=== PATIENT | male | born 1970 | race Caucasian/White ===

== ENCOUNTER 2017-01-30 20:03 | Emergency (ER) | payer OTHER, MEDICARE ==
[~2017-01-30] VITALS: Ht 180.3 cm; Wt 117.9 kg
[2017-01-30 21:02] VITALS: BP 120/77
[2017-01-30 21:17] LABS: ABSOLUTE BASOPHIL COUNT 0.1 /CUMM (0.0-0.2); ABSOLUTE EOSINOPHIL COUNT 0.3 /CUMM (0.0-0.7); ABSOLUTE GRANULOCYTE CT 5.1 /CUMM (1.4-6.5); ABSOLUTE LYMPH COUNT 2.4 /CUMM (1.2-3.4); ABSOLUTE MONOCYTE COUNT 0.6 /CUMM (0.10-0.60); BASOPHIL % 1.2 % (0.0-2.0); EOSINOPHIL % 3.1 % (0-5); GRANULOCYTE % 60.7 % (42.2-75.2); MEAN CORPUSCULAR HGB 28.8 PG (27.0-31.0); MEAN CORPUSCULAR HGB CONC 33.2 G/DL (33.0-37.0); MEAN CORPUSCULAR VOLUME 86.9 FL (80.0-94.0); MEAN PLATELET VOLUME 7.5 FL (7.4-10.4); PLATELET COUNT 274 /CUMM (130-400); RBC DISTRIBUTION WIDTH 13.8 % (11.5-14.5); RED BLOOD CELL CT 5.29 /CUMM (4.70-6.10); WHITE BLOOD CELL COUNT 8.4 /CUMM (4.8-10.8)
--- NOTE | 2017-01-30 21:47 | ED GENERAL ADULT ---
History of Present Illness General Chief Complaint: General Adult Stated Complaint: PER PT "HAVING KIDNEY PAIN" Source: patient Exam Limitations: no limitations Vital Signs & Intake/Output Vital Signs & Intake/Output Vital Signs Date Time Temp Pulse Resp B/P B/P Pulse O2 O2 Flow FiO2 Mean Ox Delivery Rate 01/30 2212 96 01/30 2102 98.1 98 18 120/77 97 Room Air ED Intake and Output 01/31 0000 01/30 1200 Intake Total Output Total Balance Patient 260 lb Weight Weight Reported by Patient Measurement Method Allergies Coded Allergies: No Known Allergies (01/30/17) Reconcile Medications Atorvastatin Calcium 20 MG TABLET 1 TAB PO DAILY CHOLESTEROL (Reported) Cyclobenzaprine HCl 10 MG TABLET 1 TAB PO BID MUSCLE SPASMS (Reported) Cyclobenzaprine HCl 10 MG TABLET 1 TAB PO 4 TIMES/DAY PRN MUSCLE SPASM Ibuprofen 800 MG TABLET 1 TAB PO TID PRN pain Mometasone Furoate (Nasonex) 50 MCG SPRAY.PUMP 2 SPRAY NASB DAILY ALLERGIES ( Reported) Oxycodone HCl 30 MG TABLET 1 TAB PO 4XDAILY PAIN (Reported) Valsartan/Hydrochlorothiazide (Valsartan-Hctz 160-12.5 MG Tab) 160 MG-12.5 MG TABLET 1 TAB PO DAILY BP (Reported) Triage Note: TRIAGE: PATIENT TO ER FROM HOME REPORTING L FLANK AND R FLANK PAIN X 2 WEEKS, REPORTS CURRENTLY 2/10, INTERMITTENT SEVERITY. DENIES N/V, DENIES URINARY SX. PATIENT FAMILY REPORTS "I THINK HE HAS A KIDNEY INFECTION." DENIES HX KIDNEY INFECTIONS. REPORTS "URINE HAS BEEN VERY DARK AND STRONG." Triage Nurses Notes Reviewed? yes Onset: Gradual Duration: day(s): Timing: recent history Injury Environment: home Severity: mild Modifying Factors: Improves With: rest. Worsens With: movement. Associated Symptoms: muscle spasm vs other. HPI: 46-year-old gentleman, history of lumbar stenosis, presents with bilateral lower lumbar pain in the past 1-2 days. He states that he is concerned about having a kidney infection because he has noted that his urine appears darker than usual. He has no nausea vomiting diarrhea dysuria fever or chills. He has no chest pain or shortness of breath. He is otherwise well and has no other concerns. He notes that his pain is worse with movement and seems to be relieved with rest. He has no radiating pain, no weakness bowel or bladder issues. Past History Travel History Traveled to [place] past 21 day No Medical History Any Pertinent Medical History? see below for history Neurological: NONE EENT: NONE Cardiovascular: NONE Respiratory: NONE Gastrointestinal: NONE Hepatic: NONE Renal: NONE Musculoskeletal: NONE Psychiatric: NONE Endocrine: NONE Blood Disorders: NONE Cancer(s): NONE MEN'S FURNISHINGS SALESPERSON/Reproductive: NONE Surgical History Surgical History: none Psychosocial History What is your primary language Persian Tobacco Use: Quit >30 days ago Family History Hx Contributory? No Review of Systems Review of Systems Constitutional: Reports: no symptoms. EENTM: Reports: no symptoms. Respiratory: Reports: no symptoms. Cardiovascular: Reports: no symptoms. GI: Reports: no symptoms. Genitourinary: Reports: no symptoms. Musculoskeletal: Reports: no symptoms. Skin: Reports: no symptoms. Neurological/Psychological: Reports: no symptoms. Hematologic/Endocrine: Reports: no symptoms. Immunologic/Allergic: Reports: no symptoms. All Other Systems: Reviewed and Negative Physical Exam Physical Exam General Appearance: well developed/nourished, mild distress Head: atraumatic, normal appearance Eyes: Bilateral: normal appearance. Ears, Nose, Throat: normal pharynx, normal ENT inspection Neck: normal inspection, supple, full range of motion Respiratory: normal breath sounds, chest non-tender, no respiratory distress, quiet respiration, lungs clear Cardiovascular: regular rate/rhythm Gastrointestinal: normal bowel sounds, soft, non-tender, no organomegaly Back: normal inspection, normal range of motion, muscle spasm, no vertebral tenderness Extremities: normal inspection Neurologic/Psych: no motor/sensory deficits, awake, alert, oriented x 3 Skin: intact, normal color, warm/dry Core Measures ACS in differential dx? No CVA/TIA Diagnosis: No Severe Sepsis Present: No Septic Shock Present: No Progress Differential Diagnoses I considered the following diagnoses in my evaluation of the patient: back pain vs uti vs other. Plan of Care: Orders Procedure Date/time Status URINALYSIS 01/30 2105 Complete LIPASE 01/30 2105 Complete COMPREHENSIVE METABOLIC PANEL 01/30 2105 Complete CBC WITHOUT DIFFERENTIAL 01/30 2105 Complete AMYLASE 01/30 2105 Complete Laboratory Tests 01/30/17 2210: Urinalysis MOD H, Urine Color YEL, Urine Clarity CLEAR, Urine pH 6.0, Ur Specific [place] 1.025, Urine Protein 100 H, Urine Ketones TRACE H, Urine Nitrite NEG, Urine Bilirubin NEG, Urine Urobilinogen 1.0, Ur Leukocyte Esterase NEG, Ur Microscopic SEDIMENT EXAMINED, Urine RBC RARE, Urine WBC 1-3 H, Urine Mucus MANY H, Urine Hemoglobin NEG, Urine Glucose NEG 01/30/17 2111: Anion Gap 9, Estimated GFR > 60, BUN/Creatinine Ratio 11.7, Glucose 99, Calcium 9.8, Total Bilirubin 0.8, AST 30, ALT 60, Alkaline Phosphatase 72, Total Protein 7.1, Albumin 4.3, Globulin 2.8, Albumin/Globulin Ratio 1.5, Amylase < 30 L, Lipase 51, CBC w Diff NO MAN DIFF REQ, RBC 5.29, MCV 86.9, MCH 28.8, RDW 13.8, MPV 7.5, Gran % 60.7, Lymphocytes % 28.4, Monocytes % 6.6, Eosinophils % 3.1, Basophils % 1.2, Absolute Granulocytes 5.1, Absolute Lymphocytes 2.4, Absolute Monocytes 0.6, Absolute Eosinophils 0.3, Absolute Basophils 0.1, PUBS MCHC 33.2 Initial ED EKG: none Departure Departure Disposition: HOME OR SELF CARE Condition: Stable Clinical Impression Primary Impression: Back pain Referrals: ROM GONZALES,MARION Escobar (PCP/Family) Departure Forms: Customer Survey General Discharge Information Prescriptions: Current Visit Scripts Ibuprofen 1 TAB PO TID PRN pain #30 TAB Cyclobenzaprine HCl 1 TAB PO 4 TIMES/DAY PRN MUSCLE SPASM #30 TAB Ref 1 Critical Care Note Critical Care Note Critical Care Time: non-applicable
[2017-01-30] MEDS ORDERED: CYCLOBENZAPRINE10 M1 PO ×2 (22:26→23:05)
[2017-01-30] MEDS ORDERED: ATORVASTATIN CA20 M1 PO (22:26)
[2017-01-30] MEDS ORDERED: OXYCODONE HCL30 M1 PO (22:26)
[2017-01-30] MEDS ORDERED: VALSARTAN-HCTZ1 EAC1 PO (22:26)
[2017-01-30] MEDS ORDERED: NASONEX17 GM NASB (22:27)
[2017-01-30] MEDS ORDERED: IBUPROFEN800 M1 PO (23:05)
== END 2017-01-30 23:17 ==
LOC: ERH 20:03
PROVIDERS: Emergency Medicine
DX: M54.5 Low back pain (principal)
CPT/HCPCS: 81001